=== PATIENT | male | born 1950 | race Caucasian/White ===

== ENCOUNTER → 2016-06-17 | Outpatient (CLI) | payer OTHER ==
--- NOTE | 2016-06-17 09:58 | DI ---
ABDOMINAL AORTIC ULTRASOUND, 06/17/2016 8:49 AM Clinical History: Screening for abdominal aortic aneurysm Previous Exam: None at this facility. Scans are performed in multiple projections through the length of the aorta and iliac arteries with t he high resolution linear array probe. Color Doppler ultrasound was also performed. The abdominal aorta has a normal caliber throughout with no measurement exceeding 22 mm. Both common iliac arteries are also normal. Reading: Normal ultrasound exam of the abdominal aorta.
== END ==
LOC: US 08:45
PROVIDERS: ATTEND Internal Medicine
DX: Z13.6 Encounter for screening for cardiovascular disorders (principal)
CPT/HCPCS: 76775

== ENCOUNTER 2018-12-09 13:33 | Inpatient (IN) ==
[2018-12-09] MEDS ORDERED: Sodium Chloride 0.9% 1,000 ML PRIMARY IV ONE (14:07)
[2018-12-09 14:54] LABS: BASOPHILS # (AUTO) 0.02 10*3/UL; BASOPHILS % (AUTO) 0.3 % (0-1); EOSINOPHILS # (AUTO) 0.25 10*3/UL; EOSINOPHILS % (AUTO) 3.9 % (0-8); Hematocrit [HCT] 33.9 % (42.0-52.0); Hemoglobin [HGB] 10.6 g/dL (14.0-18.0); LYMPHOCYTES # (AUTO) 1.66 10*3/uL; MEAN CORPUSCULAR HGB CONC 31.3 g/dL (33-37); MEAN CORPUSCULAR VOLUME 96.6 FL (80-90); MONOCYTES # (AUTO) 0.93 10*3/UL (0.3-0.8); MONOCYTES % (AUTO) 14.6 % (5-15); NEUTROPHILS # (AUTO) 3.48 10*3/UL; NEUTROPHILS % (AUTO) 54.6 % (50-80); RED BLOOD COUNT 3.51 10^6/uL (4.70-6.10)
[2018-12-09 14:58] LABS: PLATELET MORPHOLOGY COMMENT NORMAL MORPHOLOGY (NORM); RBC MORPHOLOGY COMMENT NORMAL MORPHOLOGY (NORM); WBC MORPHOLOGY COMMENT NORMAL MORPHOLOGY (NORM)
[2018-12-09 15:05] LABS: BUN/CREATININE RATIO 20.76 (6-20); SERUM ALBUMIN 3.9 g/dL (3.5-4.8)
--- NOTE | 2018-12-09 16:05 | DI ---
XR TIB/FIB 2VW,12/09/2018 2:08 PM: Clinical History: Cellulitis Previous Exam: 03/21/2015 contralateral knee. Findings: 4 views of the left tibia and fibula are obtained, and demonstrate anatomic alignment without fractur es. There are rina noted involving the tibial plateau. There is a bone screw noted arising from the lateral femur. Peripheral vascular calcifications are se en. There is diffuse edema of the soft tissues. There is enthesopathy at the insertion of the Marcus s tendon. A few phleboliths are seen. Impression: Postsurgical changes of the femur and tibia without fractures.
--- NOTE | 2018-12-09 16:26 | DI ---
US Veins, [facility] [employer],12/09/2018 3:30 PM: Clinical History: Flank pain and elevated d-dimer. Previous Exam: None at this facility. Findings: Multiple grayscale and color Doppler sonographic images are obtained through the deep veins of the le ft lower extremity, and demonstrate complete coaptation upon graded compression throughout. There is no echogenic thrombus. There is normal respiratory variation and augmentation. Impression: No evidence of deep venous thrombosis.
[2018-12-09] MEDS ORDERED: Ertapenem Inj 1 GM in Sodium Chloride 0.9% 100 ML IV ONE (16:39)
--- NOTE | 2018-12-09 17:22 | PDOC ---
Lower Extremity Problem HPI - General Chief Complaint: Lower Extremity Problem/Injury Stated Complaint: left lower leg diabetic ulcer Date Seen by Provider: 12/09/18 Time Seen by Provider: 13:55 Source: POSITIVE: Patient, Spouse Exam Limitations: POSITIVE: No limitations Nurse's Notes Reviewed & Considered: Yes - History of Present Illness Initial Comments: The patient is a 68-year-old male. Patient has a history of diabetes mellitus. He states he has a history of developing cellulitis and diabetic ulcers to his lower extremities. Patient states for the past 2 months he has had erythema warmth and tenderness over the lateral aspect of the left lower leg. He has been undergoing physical therapy for this problem and is being treated by his cardroom plastic card grader at the clinic. He states that in the past he has received treatment with rodney boots. He has been being treated in the physical therapy clinic. He states that for the past 2 weeks his condition has worsened and he was seen or was contacted by his cardroom plastic card grader this morning and was advised to come to the emergency room for further evaluation and treatment. Patient wears a knee brace to his left knee and states that he has in the past had surgery for an anterior cruciate ligament injury and is also had surgical treatment for a left meniscal injury. He has a history of coronary artery disease and has had a coronary artery stent. He is on metformin and also aspartate and glargine insulin Body Location Affected: REPORTS: Lower Extremity (L) Timing: REPORTS: Gradual, Getting Worse Duration: >1 week Severity: Moderate Recent Injury: REPORTS: No Context of Injury: REPORTS: Other (Recurring cellulitis and diabetic ulcers to lower extremities) Location at Time of Onset: REPORTS: Home Quality: REPORTS: "Pain" (Pain on palpation over area of cellulitis of left low er leg) Modifying Factors: REPORTS: Other (Exacerbated by direct palpation) Associated Symptoms: DENIES: Chest Pain, Shortness of Breath, Rapid Heart Rate, Fainting, Other Recent Care Received: REPORTS: Other (As above) Any Prior Injuries Related to Current Complaint?: No - Patient Home Medications Home Medications: Home Medications Metformin HCl 1,000 mg PO BID 07/12/10 Metoprolol Tartrate 25 mg PO BID 07/12/10 Ranitidine HCl 150 mg PO BID cap 03/21/15 acetaminophen 325 mg tablet 650 mg PO 3-4XD tab 03/09/17 buspirone 10 mg tablet 20 mg PO TID #180 tab 03/09/17 adhesive tape 3" X 10 yard See Dose Instructions .ROUTE .MEDSUPPLY #12 ea 07/03/17 calcium alginate 4" X 4" bandage See Dose Instructions .ROUTE .MEDSUPPLY #10 ea 07/03/17 isosorbide mononitrate ER 30 mg tablet,extended release 24 hr 30 mg PO BID tab 12/02/17 aspirin 81 mg chewable tablet 81 mg PO QDAY tab 07/19/18 cyanocobalamin (vit B-12) 1,000 mcg/mL oral drops 1,000 mcg PO QDAY drp 07/19/18 lisinopril 20 mg-hydrochlorothiazide 25 mg tablet 1 tab PO QDAY 07/19/18 zolpidem 10 mg tablet 10 mg PO QDAY tab 07/19/18 doxycycline hyclate 100 mg capsule 100 mg PO BID #180 cap 07/28/18 fluoxetine 20 mg capsule 60 mg PO QDAY #90 cap 08/23/18 valproic acid 250 mg capsule 250 mg PO QDAY #60 cap 08/23/18 finasteride 5 mg tablet 5 mg PO QDAY #90 tab 11/10/18 insulin aspart U- 100 100 unit/mL subcutaneous solution 70 unit SUBCUT QDAY vial 11/10/18 tamsulosin 0.4 mg capsule 0.4 mg PO QDAY #90 cap 11/10/18 magnesium 400 mg (as magnesium oxide) capsule 400 mg PO QDAY #90 cap 11/11/18 allopurinol 100 mg tablet 200 mg PO QDAY tab 11/24/18 clopidogrel 75 mg tablet 75 mg PO QDAY 11/24/18 foam bandage 4" X 4" See Dose Instructions .ROUTE .MEDSUPPLY #50 ea 11/24/18 furosemide 80 mg tablet 40 mg PO QDAY tab 11/24/18 gabapentin 400 mg capsule 1,200 mg PO TID cap 11/24/18 insulin glargine (U- 100) 100 unit/mL subcutaneous solution 70 unit SUBCUT BID ml 11/24/18 meloxicam 15 mg tablet 15 mg PO QDAY PRN tab 11/24/18 morphine ER 15 mg tablet,extended release 15 mg PO Q12H #90 tab 11/24/18 rosuvastatin 40 mg tablet 40 mg PO QDAY #90 tab 11/24/18 nitroglycerin 0.4 mg sublingual tablet 0.4 mg SL Q5-15M PRN #20 tab 12/06/18 - Patient Allergies Allergies/Adverse Reactions: Allergies Allergy/AdvReac Type Severity Reaction Status Date / Time coconut Allergy Unknown Hives Verified 12/09/18 13:53 Past Medical History - heen HEENT History: Denies History, Dentures/Partials Additional HEENT History: UPPER AND LOWER DENTURES Cardiovascular History: Hypertension, Previous NH, CAD, Hyperlipidemia Respiratory History: COPD, Shortness of Breath, Sleep Apnea, Home Oxygen Use, Snoring Additional Respiratory History: 4L NC AT ALL TIMES Gastrointestinal History: GERD Genitourinary History: Denies History Endocrine History: Type 2 Diabetes (insulin) Musculoskeletal History: Muscle Weakness, Carpal Tunnel, Osteoarthritis, Other (please comment) Prosthesis or Implant: No Additional Musculoskeletal History: RIGHT ELBOW NERVE IMPINGEMENT/SURGERY. R SHOULDER SURGERY. MUSCLE WEAKNESS BLE'S. WEARS BRACES. Neurological History: CVA, Migraines, Other (please comment) Additional Neurological History: GABAPENTIN FOR DIAB NEUROPATHY. MOSTLY IN HANDS AND FEET. HASN'T HAD MIGRAINE IN A LONG TIME, PT STATES. Blood Disorders: Denies History Psychiatric History: Depression, Anxiety Disorders, PTSD History of Sexually Transmitted Diseases: No Male Reproductive History: BPH Cancer History: Denies History In Past Year Been Physically Harmed or Verbally Threatened: No History of MDRO: No History of Other Communicable Diseases: No Tobacco Use: Former Smoker Alcohol Use: None In the Past 12 Months, Have Used or Abuse Any Substance: None Previous Surgical History: Yes Type / Date of Surgery: T&A/ COLONOSCOPY/ CORONARY ANGIOGRAM AND CORONARY STENT X 1/ KNEE SCOPE ACL LEFT/ RIGHT RCR/ LEFT ELBOW AND HUMERUS SX Anesthesia Reactions: No Malignant Hyperthermia: No Significant Family History: No pertinent family hx Past Medical History Reviewed: Reviewed - No Changes ROS - Limitations ROS Limitations: No Limitations Constitution: REPORTS: Denies Symptoms Cardiovascular: REPORTS: Denies Cardiac Symptoms Respiratory: REPORTS: Denies Resp Symptoms Neurological: REPORTS: Denies Neuro Symptoms Gastrointestinal: REPORTS: Denies GI Symptoms Endocrine: REPORTS: Denies Symptoms Musculoskeletal: REPORTS: Other (Warmth, erythema and tenderness over anteromedial aspect of left lower leg with a superficial ulcer; some weeping over this area.) Genitourinary: REPORTS: Denies Symptoms Eyes: REPORTS: Denies Symptoms ENT: REPORTS: Denies Symptoms Skin: REPORTS: Other (Erythema, warmth and tenderness over the medial aspect of the left lower leg with some weeping and a superficial ulcer) Lympathic: REPORTS: Denies Lympathic Symptoms Immunologic: POSITIVE: Denies Symptoms Psychiatric: POSITIVE: Denies Psych Symptoms Lower Ext Problem Exam - General Appearance General Appearance: POSITIVE: Alert, Cooperative, No Acute Distress. NEGATIVE: No Evidence of Trauma - Extremities Lower Extremity: POSITIVE: Tenderness, Swelling, Other (Warmth, tenderness and erythema over the anteromedial aspect of left lower extremity with some weeping and a shallow ulcer) Joint Exam: POSITIVE: Joints Normal, Normal ROM, Normal Gait, Normal Weight Bearing Vascular: POSITIVE: No Vascular Compromise, Full Pulses, Equal Pulses - Neuro / Psych Neuro/Psych: POSITIVE: Sensation Normal, Motor Normal, Oriented to Person, Or iented to Place, Oriented to Time, director of patient care Normal as Tested, Mood Appropriate, Affect Appropriate - Neck / Back / Pelvis Back / Neck: POSITIVE: Normal Inspection, Normal ROM - Skin Skin: POSITIVE: Warmth, Erythema, Other (Warmth, erythema and tenderness over the medial aspect of the left lower leg with associated weeping and a shallow ulcer; see diagram) - HEENT HEENT: POSITIVE: Head Inspection Nml, Eyes Inspection Nml, Ears Inspection Nml, Nose Inspection Nml, Oral/Dental Inspect. Nml, Pharynx Inspect. Nml, PERRL, EOMI - Respiratory / CVS Respiratory / CVS: POSITIVE: No Respiratory Distress, Breath Sounds Normal, Regular Rate/Rhythm, Heart Sounds Normal Peripheral Pulses: Radial (R): 2+, Radial (L): 2+, Dorsalis-pedis (R): 2+, Dorsalis-pedis (L): 2+ - Abdomen Abdomen: Soft: (All Quadrants), Normal Bowel Sounds: (All Quadrants), Denies Tenderness: (All Quadrants), No Splenomegaly: (All Quadrants), No Hepatomegaly: (All Quadrants), No Guarding: (All Quadrants), No Rebound: (All Quadrants), No Palpable Pulse: (All Quadrants), No Palpabale Mass: (All Quadrants), No Diste ntion: (All Quadrants), No Rigidity: (All Quadrants) Images - Lower Extremities Lower Extremities: 1 - Erythema, tenderness, warmth with some weeping of serous fluid and a shallow ulcer 2 - Shallow ulcer 3 - Erythema Lower Ext Problem Progress - Results Reviewed by me Xrays/CTs/US Reviewed by me: Yes Discussed with Radiologist: Yes Radiology Findings: X-ray left tib-fib shows no osteomyelitis. There is postsurgical changes from his previous knee surgery, apparently an anterior cruciate ligament repair. Venous duplex ultrasound of the left leg normal. Lab Results Reviewed by Me: Yes CBC and BMP: 12/09/18 14:30 12/09/18 14:30 Lab Results:: Laboratory Results 12/09/18 12/09/18 12/09/18 14:30 14:30 14:30 WBC 6.37 RBC 3.51 L Hgb 10.6 L Hct 33.9 L MCV 96.6 H MCH 30.2 MCHC 31.3 L RDW Std Deviation 48.8 RDW Coeff of Sadiq 14.6 H Plt Count 203 MPV 11.0 Immature Gran % (Auto) 0.5 Neut % (Auto) 54.6 Lymph % (Auto) 26.1 Grant % (Auto) 14.6 Eos % (Auto) 3.9 Baso % (Auto) 0.3 Immature Gran # (Auto) 0.03 Neut # (Auto) 3.48 Lymph # (Auto) 1.66 Grant # (Auto) 0.93 H Eos # (Auto) 0.25 Baso # (Auto) 0.02 WBC Morphology Comment Normal morphology Plt Morphology Comment Normal morphology RBC Morph Comment Normal morphology D-Dimer Sodium Potassium Chloride Carbon Dioxide Anion Gap BUN Creatinine Estimated GFR BUN/Creatinine Ratio Glucose Calculated Osmolality Lactic Acid 3.6 H Calcium Total Bilirubin AST ALT Alkaline Phosphatase C-Reactive Protein 0.6 Total Protein Albumin Globulin Albumin/Globulin Ratio 12/09/18 12/09/18 14:30 14:30 WBC RBC Hgb Hct MCV MCH MCHC RDW Std Deviation RDW Coeff of Sadiq Plt Count MPV Immature Gran % (Auto) Neut % (Auto) Lymph % (Auto) Grant % (Auto) Eos % (Auto) Baso % (Auto) Immature Gran # (Auto) Neut # (Auto) Lymph # (Auto) Grant # (Auto) Eos # (Auto) Baso # (Auto) WBC Morphology Comment Plt Morphology Comment RBC Morph Comment D-Dimer 739 H Sodium 143 Potassium 5.1 Chloride 102 Carbon Dioxide 30 Anion Gap 11 BUN 27 H Creatinine 1.3 Estimated GFR 55 BUN/Creatinine Ratio 20.76 H Glucose 125 H Calculated Osmolality 301.0 H Lactic Acid Calcium 9.0 Total Bilirubin 0.2 L AST 41 ALT 40 Alkaline Phosphatase 52 C-Reactive Protein Total Protein 6.7 Albumin 3.9 Globulin 2.8 Albumin/Globulin Ratio 1.30 - Patient's Progress Pain Medication Addressed: POSITIVE: Not Applicable Re-Examine Time: 16:35 Re-Examine Comment: Results of radiologic studies and laboratory studies discussed with patient and his . Patient's cellulitis has progressed as above. Options of treatment discussed; patient admitted for further evaluation and treatment. Blood cultures were drawn and the patient received 1 g of Invanz IV. Status: POSITIVE: Unchanged, Re-Examined - Consult Consult (If Yes, Name of Consulting MD & Time Called): Yes (Dr. Canseco, [facility], 2099) Consulting MD will see pt:: POSITIVE: [facility] [place] Admit Counseled: POSITIVE: Patient, Family (), RE: Lab Results, RE: Radiology Results, RE: DX, RE: Need for F/U Patient Care Time - Estimated PCT Patient Care Time (In Minutes): 45 Vital Signs - Recent Vital Signs Vital Signs: Vital Signs (Last 8 hours) Temp Pulse Pulse Resp BP BP Pulse Ox 12/09/18 16:56 96.6 F L 62 16 118/52 96 12/09/18 13:54 98 F 78 18 97/58 96 - VS Reviewed Vital Signs Reviewed: Yes Discharge Clinical Impression: Cellulitis, Diabetes mellitus Discharge Disposition: Admit to Inpatient Condition: Good Patient Problem(s) Reviewed: Yes Follow Up With: Chrissy Dutton [Primary Care Provider] - Date Decision to Admit to Inpatient: 12/09/18 Time Decision to Admit to Inpatient: 16:30
--- NOTE | 2018-12-09 17:29 | PDOC ---
HPI - History of Present Illness Date of Service: 12/09/18 Time of Service: 18:00 Chief Complaint: Pain and redness in the left lower leg progressively getting worse the last 2 weeks History of Present Illness: This is a 68 years old male with medical history significant for history of diabetes on insulin, history of coronary artery disease with previous stent, hypertension, hyperlipidemia, chronic pain syndrome, depression , BPH and histor y of previous ulcer and the was referred to the ER from Dr. Nato macias because of increasing redness and pain in the left lower leg. The patient said that he had an area of redness in that leg about 2 months ago seemed to resolve until a month ago when started again with area of redness in the middle of left lower leg and progressively got worse the last 2 weeks. The area of redness increased in size and leg swelling and pain got worse last night and because of that he contacted his physician who sent him to the ER. In the ER he was diagnosed with worsening cellulitis was given Invanz and was admitted. Apart from the swelling and redness in the leg the patient denied other symptoms like chest pain, shortness of breath, nausea, vomiting. Past Medical History Medical History: 1. History of diabetes on insulin. 2. History of a artery disease with previous stent 2003. Apparently he told that he needs CABG but he opted against it. 3. History of diabetic retinopathy. 4. History of chronic pain syndrome on morphine. 5. BPH. 6. History of hypercholesterolemia. 7. History of depression. 8. History of gout. 9. History of leg ulcers before. 10. Morbid obesity. 11. Chronic hypoxemia on oxygen 4 L a minute. 12. History of hypertension. 13. History of chronic arthritis. 14. History of GERD. 15. History of CHF with preserved ejection fraction Surgical History: 1. History of tonsillectomy. 2. History of appendectomy. 3. History of previous stent before Family History: Reviewed an Not Pertinent Past Social History: Used to smoke doesn't smoke anymore, doesn't drink, no drugs. He said he is limited in his movement because of previous injuries that he had to joint using a wheelchair mostly the last month or 2. Tobacco Use: Former Smoker In the Past 12 Months, Have Used or Abuse Any of the Following Substance: None Medication / Allergies Home Medications: Home Medications Medication Instructions Recorded Confirmed Metformin HCl 1,000 mg PO BID 07/12/10 12/09/18 Metoprolol Tartrate 25 mg PO BID 07/12/10 12/09/18 Ranitidine HCl 150 mg PO BID cap 03/21/15 12/09/18 acetaminophen 325 mg tablet 650 mg PO 3-4XD tab 03/09/17 12/09/18 buspirone 10 mg tablet 20 mg PO TID #180 tab 03/09/17 12/09/18 adhesive tape 3" X 10 yard See Dose Instructions .ROUTE 07/03/17 11/10/18 .MEDSUPPLY #12 ea calcium alginate 4" X 4" bandage See Dose Instructions .ROUTE 07/03/17 11/10/18 .MEDSUPPLY #10 ea isosorbide mononitrate ER 30 mg 30 mg PO BID tab 12/02/17 12/09/18 tablet,extended release 24 hr aspirin 81 mg chewable tablet 81 mg PO QDAY tab 07/19/18 12/09/18 cyanocobalamin (vit B-12) 1,000 1,000 mcg PO QDAY drp 07/19/18 12/09/18 mcg/mL oral drops lisinopril 20 1 tab PO QDAY 07/19/18 12/09/18 mg-hydrochlorothiazide 25 mg tablet zolpidem 10 mg tablet 10 mg PO QDAY tab 07/19/18 12/10/18 doxycycline hyclate 100 mg capsule 100 mg PO BID #180 cap 07/28/18 12/09/18 fluoxetine 20 mg capsule 60 mg PO QDAY #90 cap 08/23/18 12/09/18 valproic acid 250 mg capsule 250 mg PO QDAY #60 cap 08/23/18 12/09/18 finasteride 5 mg tablet 5 mg PO QDAY #90 tab 11/10/18 12/09/18 insulin aspart U- 100 100 unit/mL 70 unit SUBCUT QDAY vial 11/10/18 12/09/18 subcutaneous solution tamsulosin 0.4 mg capsule 0.4 mg PO QDAY #90 cap 11/10/18 12/09/18 magnesium 400 mg (as magnesium 400 mg PO QDAY #90 cap 11/11/18 12/09/18 oxide) capsule allopurinol 100 mg tablet 200 mg PO QDAY tab 11/24/18 12/09/18 clopidogrel 75 mg tablet 75 mg PO QDAY 11/24/18 12/09/18 foam bandage 4" X 4" See Dose Instructions .ROUTE 11/24/18 11/24/18 .MEDSUPPLY #50 ea furosemide 80 mg tablet 40 mg PO QDAY tab 11/24/18 12/09/18 gabapentin 400 mg capsule 1,200 mg PO TID cap 11/24/18 12/09/18 insulin glargine (U- 100) 100 70 unit SUBCUT BID ml 11/24/18 12/09/18 unit/mL subcutaneous solution meloxicam 15 mg tablet 15 mg PO QDAY PRN tab 11/24/18 12/09/18 morphine ER 15 mg tablet,extended 15 mg PO Q12H #90 tab 11/24/18 12/09/18 release rosuvastatin 40 mg tablet 40 mg PO QDAY #90 tab 11/24/18 12/09/18 nitroglycerin 0.4 mg sublingual 0.4 mg SL Q5-15M PRN #20 tab 12/06/18 12/09/18 tablet Allergies/Adverse Reactions: Allergies Allergy/AdvReac Type Severity Reaction Status Date / Time coconut Allergy Unknown Hives Verified 12/09/18 17:34 Review of Systems - Review of Systems All Systems: Reviewed & No Additional Complaints Except as Stated Exam - Vitals Vital Signs: Vital Signs Temperature 96.6 F Temperature Source Temporal Artery Scan Pulse Rate [Pulse Oximeter] 78 Pulse Rate 62 Respiratory Rate 16 Blood Pressure [Left Arm] 97/58 Blood Pressure 118/52 Pulse Ox 96 Oxygen Flow Rate 4 Oxygen Delivery Method Nasal Cannula Height 6 ft Weight 280 lb - General General Appearance: No Acute Distress, Morbidly Obese - Head Head Exam: Normal Inspection - Eye Eye Exam: POSITIVE: Normal Appearance - ENT ENT Exam: POSITIVE: Normal Exam - Neck Neck Exam: Normal Inspection - Respiratory Respiratory Exam: POSITIVE: Clear to Auscultation - Bilaterally - Cardiovascular Cardiovascular Exam: POSITIVE: RRR - GI/Abdominal GI/Abdominal Exam: POSITIVE: Normal Bowel Sounds, Non Tender, Non Distended, Soft, No Organomegaly - Rectal Rectal Exam: POSITIVE: Deferred - External Exam: POSITIVE: Deferred - Extremities Additional Extremities Exam Details: There is bilateral leg edema worse on the left compared to that. There is some ulceration left lower lip. In addition there is a area of redness around the ulceration some chronic meticulous. Some tenderness present - Back Back Exam: POSITIVE: Normal Inspection - Neurological Neurological Exam: POSITIVE: Alert, Oriented x 3, CN II-XII Intact, No Facial Droop, Speech Intact / Clear, Moves All Extremities Equally - Psychiatric Psychiatric Exam: POSITIVE: Normal Affect Results - Labs CBC and BMP: 12/09/18 14:30 12/09/18 14:30 - Imaging Status: Report Reviewed by Me (US leg No evidence of deep venous thrombosis. X ray legs Postsurgical changes of the femur and tibia without fractures.) Assessment and Plan - Patient Problems (1) Cellulitis Current Visit: Yes Status: Acute Comment: There is chronic changes present in the leg but he is reporting acute symptoms to suggest maybe superimposed infection. I think will treat with vancomycinl becuase of his previous history of MRSA. There is also a stasis ulceration changes so we will ask PT to evaluate him in am. Code(s): L03.90 - Cellulitis, unspecified (2) Chronic pain Current Visit: No Status: Chronic Comment: Same medication. He'll bring his on pain medication. Code(s): G89.29 - Other chronic pain Qualifiers: Chronic pain type: chronic pain syndrome Qualified Code(s): G89.4 - Chronic pain syndrome (3) Type 2 diabetes mellitus with diabetic polyneuropathy, with long-term current use of insulin Current Visit: No Status: Chronic Onset Date: 02/26/16 Comment: He is on 70 units of Lantus twice a day and continue with it. He is also onsliding scale will e the [facility] sliding scale until we get a copy of his scale. Code(s): E11.42 - Type 2 diabetes mellitus with diabetic polyneuropathy; Z79.4 - petroleum terminal plant operator (current) use of insulin (4) Essential hypertension Current Visit: No Status: Chronic Onset Date: 02/26/16 Comment: Same med Code(s): I10 - Essential (primary) hypertension (5) Mixed hyperlipidemia Current Visit: No Status: Chronic Onset Date: 02/26/16 Comment: Same med Code(s): E78.2 - Mixed hyperlipidemia (6) Depression with anxiety Current Visit: No Status: Chronic Onset Date: 02/26/16 Comment: same Medication Code(s): F41.8 - Other specified anxiety disorders
[2018-12-09] MEDS ORDERED: DOCUSATE 100 MG CAPSULE PO PRN (18:20)
[2018-12-09] MEDS ORDERED: CALCIUM CARBONATE 500 MG (TUMS) CHEWABLE TABLET PO PRN (18:20)
[2018-12-09] MEDS ORDERED: LIDOCAINE W/ SODIUM BICARB 0.5 ML SYR SUBD PRN (18:20)
[2018-12-09] MEDS ORDERED: ACETAMINOPHEN 325 MG TABLET PO PRN (18:20)
[2018-12-09] MEDS ORDERED: ONDANSETRON 4 MG/2 ML VIAL IVP PRN (18:20)
[2018-12-09] MEDS ORDERED: Vancomycin-PHA to Dose IV PRN (18:34)
[2018-12-09] MEDS: SODIUM CHLORIDE 0.9% IV SCH (19:20)
[2018-12-09] MEDS: VANCOMYCIN IV SCH (19:20)
[2018-12-09] MEDS: metFORMIN 500 MG TABLET PO SCH (20:09)
[2018-12-09] MEDS: Insulin Glargine SoloStar Inj 100 UNIT/ML INSULN.PEN SUBCUT SCH (20:10)
[2018-12-09] MEDS: Metoprolol TARTRATE Tab 25 MG TAB PO SCH (20:10)
[2018-12-09] MEDS: ISOSORBIDE MONONITRATE 30 MG SR 24H TABLET PO SCH (20:10)
[2018-12-09] MEDS: FAMOTIDINE 20 MG TABLET PO SCH (20:10)
[2018-12-09] MEDS: MORPHINE SULFATE 15 MG PO SCH (20:12)
[2018-12-09] MEDS ORDERED: ZOLPIDEM 10 MG TABLET PO PRN (20:46)
[2018-12-09] MEDS ORDERED: Rosuvastatin Tab 20 MG TAB PO SCH (21:00)
[2018-12-09] MEDS ORDERED: BUSPIRONE HCL 10 MG PO SCH (21:00)
[2018-12-09] MEDS ORDERED: RANITIDINE HCL 150 MG PO SCH (21:00)
[2018-12-09] MEDS ORDERED: VALPROIC ACID 250 MG PO SCH (21:00)
[2018-12-09] MEDS ORDERED: INSULIN GLARGINE 70 UNIT SUBCUT SCH (21:00)
[2018-12-09] MEDS: BUSPIRONE HCL 10 MG PO SCH (21:21)
[2018-12-10 05:09] LABS: BASOPHILS # (AUTO) 0.02 10*3/UL; BASOPHILS % (AUTO) 0.3 % (0-1); EOSINOPHILS # (AUTO) 0.24 10*3/UL; EOSINOPHILS % (AUTO) 4.2 % (0-8); Hematocrit [HCT] 32.4 % (42.0-52.0); Hemoglobin [HGB] 9.9 g/dL (14.0-18.0); LYMPHOCYTES # (AUTO) 1.71 10*3/uL; MEAN CORPUSCULAR HGB CONC 30.6 g/dL (33-37); MEAN CORPUSCULAR VOLUME 96.7 FL (80-90); MEAN PLATELET VOLUME 10.9 FL (7.4-12.2); MONOCYTES # (AUTO) 0.98 10*3/UL (0.3-0.8); NEUTROPHILS % (AUTO) 48.6 % (50-80); RED BLOOD COUNT 3.35 10^6/uL (4.70-6.10)
[2018-12-10 05:23] LABS: BLOOD UREA NITROGEN 26 mg/dL (7-22); BUN/CREATININE RATIO 23.63 (6-20)
[2018-12-10 05:26] LABS: PLATELET MORPHOLOGY COMMENT NORMAL MORPHOLOGY (NORM); RBC MORPHOLOGY COMMENT NORMAL MORPHOLOGY (NORM); WBC MORPHOLOGY COMMENT NORMAL MORPHOLOGY (NORM)
[2018-12-10] MEDS: SODIUM CHLORIDE 0.9% IV SCH (06:46)
[2018-12-10] MEDS: VANCOMYCIN IV SCH (06:46)
[2018-12-10 06:57] VITALS: RESP 18
[2018-12-10] MEDS ORDERED: HYDROCHLOROTHIAZIDE 25 MG TABLET PO SCH (07:00)
[2018-12-10] MEDS ORDERED: FUROSEMIDE 40 MG TABLET PO SCH (07:00)
[2018-12-10] MEDS: Insulin Lispro Flexpen 300 UNIT/3 ML INSULN.PEN SUBCUT SCH ×2 (07:50→11:12)
[2018-12-10] MEDS: BUSPIRONE HCL 10 MG PO SCH (08:48)
[2018-12-10] MEDS: ISOSORBIDE MONONITRATE 30 MG SR 24H TABLET PO SCH (08:50)
[2018-12-10] MEDS: Metoprolol TARTRATE Tab 25 MG TAB PO SCH (08:50)
[2018-12-10] MEDS: FAMOTIDINE 20 MG TABLET PO SCH (08:50)
[2018-12-10] MEDS: metFORMIN 500 MG TABLET PO SCH (08:50)
[2018-12-10] MEDS: Insulin Glargine SoloStar Inj 100 UNIT/ML INSULN.PEN SUBCUT SCH (08:51)
[2018-12-10] MEDS: MORPHINE SULFATE 15 MG PO SCH (08:52)
[2018-12-10] MEDS ORDERED: FLUoxetine 20 MG CAPSULE PO SCH (09:00)
[2018-12-10] MEDS ORDERED: VALPROIC ACID 250 MG PO SCH (09:00)
[2018-12-10] MEDS ORDERED: HYDROCHLOROTHIAZIDE PO SCH (09:00)
[2018-12-10] MEDS ORDERED: FINASTERIDE 5 MG TABLET PO SCH (09:00)
[2018-12-10] MEDS ORDERED: CLOPIDOGREL 75 MG TABLET PO SCH (09:00)
[2018-12-10] MEDS ORDERED: LISINOPRIL 20 MG TABLET PO SCH (09:00)
[2018-12-10] MEDS ORDERED: ASPIRIN 81 MG (BABY) CHEWABLE TABLET PO SCH (09:00)
[2018-12-10] MEDS ORDERED: LISINOPRIL PO SCH (09:00)
[2018-12-10] MEDS ORDERED: ALLOPURINOL 100 MG TABLET PO SCH (09:00)
[2018-12-10] MEDS ORDERED: TAMSULOSIN 0.4 MG CAPSULE PO SCH (09:00)
[2018-12-10 12:36] VITALS: BP 156/58; TEMP 98.6; O2SAT 98
[2018-12-10] MEDS ORDERED: ceFAZolin Inj 2 GM in Sodium Chloride 0.9% 100 ML IV SCH (13:30)
--- NOTE | 2018-12-10 15:42 | DCSUMMARY ---
Hospitalization Summary Admit Date: 12/09/2018 Discharge Date: 12/10/18 Primary Diagnosis:: left lower extremity cellulitis, venous stasis ulcer Hospital Course: This very pleasant 68-year-old male who suffers from diabetes mellitus type II, peripheral neuropathy, coronary artery disease, probable peripheral vascular disease, recurrent venous stasis ulcers, and PTSD, who was admitted on 12/09/2018 with what appeared to be a left lower extremity venous stasis ulcer a nd cellulitis. He was given ertapenem, and the vancomycin, but he was not toxic and did not appear to have MRSA infection based on illness state clinically, but he did have some crusting on his wound. I think this is likely a staph aureus infection, probably MSSA, and would benefit from Ancef 2 g IV every 8 hours. Given that the patient is [facility], this type several hours to arrange, to try and make sure that his antibiotic therapy would be covered. He failed doxycycline as an outpatient. There was some concern as to whether or not this could just be a venous stasis ulcer itself, but I felt that it was probably infected as the leg felt warmer on my exam and was uniformly red around. Consistent with cellulitis. Patient's other medical problems were controlled during the hospital stay except for his post traumatic stress disorder. During the day, the patient became very obstinate, defensive, and cursed, and told me that I needed to get out of his "fucking business". He stated to me that he was going to leave regardless of what we were going to do. Although we arranged IV antibiotics 3 times a day, he refuses to come in 3 times a day so we had to change her antibiotic to daptomyc in, 6 mg/kg IV every 24 hours. I spoke to pharmacy about this. We were able to arrange an infectious disease follow-up with [facility] on 12/15/2018. We will infuse via peripheral IV. I spoke with his [facility] provider, Dr. Lopez, and I also suggested that the patient see a psychiatrist for his postemetic stress disorder to consider any further medical or pharmaceutical management for this issue. He had no complaints of chest pain, shortness breath, nausea or vomiting. Assessment and Plan: 1. As per discharge assessments noted 2. Disposition: Patient is discharged home 3. Condition on discharge, stable and improved. 4. Diet: regular diet 5. Activities: resume normal activities 6. Follow-Up: 1. Visit with [facility] provider, Dr. Lopez next week 2. Visit with [facility] on 12/15/2018 7. Medications at the Time of Discharge: Home Medications Medication Instructions Recorded Confirmed Metformin HCl 1,000 mg PO BID 07/12/10 12/09/18 Metoprolol Tartrate 25 mg PO BID 07/12/10 12/09/18 Ranitidine HCl 150 mg PO BID cap 03/21/15 12/09/18 acetaminophen 325 mg tablet 650 mg PO 3-4XD tab 03/09/17 12/09/18 buspirone 10 mg tablet 20 mg PO TID #180 tab 03/09/17 12/09/18 adhesive tape 3" X 10 yard See Dose Instructions .ROUTE 07/03/17 11/10/18 .MEDSUPPLY #12 ea calcium alginate 4" X 4" bandage See Dose Instructions .ROUTE 07/03/17 11/10/18 .MEDSUPPLY #10 ea isosorbide mononitrate ER 30 mg 30 mg PO BID tab 12/02/17 12/09/18 tablet,extended release 24 hr aspirin 81 mg chewable tablet 81 mg PO QDAY tab 07/19/18 12/09/18 cyanocobalamin (vit B-12) 1,000 1,000 mcg PO QDAY drp 07/19/18 12/09/18 mcg/mL oral drops lisinopril 20 1 tab PO QDAY 07/19/18 12/09/18 mg-hydrochlorothiazide 25 mg tablet zolpidem 10 mg tablet 10 mg PO QDAY tab 07/19/18 12/10/18 fluoxetine 20 mg capsule 60 mg PO QDAY #90 cap 08/23/18 12/09/18 valproic acid 250 mg capsule 250 mg PO QDAY #60 cap 08/23/18 12/09/18 finasteride 5 mg tablet 5 mg PO QDAY #90 tab 11/10/18 12/09/18 insulin aspart U- 100 100 unit/mL 70 unit SUBCUT QDAY vial 11/10/18 12/09/18 subcutaneous solution tamsulosin 0.4 mg capsule 0.4 mg PO QDAY #90 cap 11/10/18 12/09/18 magnesium 400 mg (as magnesium 400 mg PO QDAY #90 cap 11/11/18 12/09/18 oxide) capsule allopurinol 100 mg tablet 200 mg PO QDAY tab 11/24/18 12/09/18 clopidogrel 75 mg tablet 75 mg PO QDAY 11/24/18 12/09/18 furosemide 80 mg tablet 40 mg PO QDAY tab 11/24/18 12/09/18 gabapentin 400 mg capsule 1,200 mg PO TID cap 11/24/18 12/09/18 insulin glargine (U- 100) 100 70 unit SUBCUT BID ml 11/24/18 12/09/18 unit/mL subcutaneous solution meloxicam 15 mg tablet 15 mg PO QDAY PRN tab 11/24/18 12/09/18 morphine ER 15 mg tablet,extended 15 mg PO Q12H #90 tab 11/24/18 12/09/18 release rosuvastatin 40 mg tablet 40 mg PO QDAY #90 tab 11/24/18 12/09/18 nitroglycerin 0.4 mg sublingual 0.4 mg SL Q5-15M PRN #20 tab 12/06/18 12/09/18 tablet Daptomycin 6 mg per kilograms IV 7 days 12/10/18 8. Time, care, counseling and coordination of care for this discharge is greater than 30 minutes. Exam - Vitals Vital Signs: Vital Signs Temperature 98.6 F Temperature Source Oral Pulse Rate [Apical] 80 Pulse Rate [Pulse Oximeter] 64 Pulse Rate 62 Respiratory Rate 18 Blood Pressure [Left Arm] 156/58 Blood Pressure 118/52 Pulse Ox 98 Oxygen Flow Rate 3 Oxygen Delivery Method Nasal Cannula Height 6 ft Weight 282 lb 6.4 oz - General General Appearance: No Acute Distress Additional General Exam Details: Angry and belligerent at discharge - Eye Eye Exam: POSITIVE: No Scleral Icterus - ENT ENT Exam: POSITIVE: Mucous Membranes Moist - Neck Neck Exam: JVP is not Raised - Respiratory Respiratory Exam: POSITIVE: Clear to Auscultation - Bilaterally, Breathing Non Labored - Cardiovascular Cardiovascular Exam: POSITIVE: RRR, No Murmur, No Clicks, No Gallops, No Rubs, No JVD - GI/Abdominal GI/Abdominal Exam: POSITIVE: Normal Bowel Sounds, Non Tender, Non Distended, Soft - Extremities Extremities Exam: POSITIVE: No Clubbing Present, No Cyanosis Present, +1 Edema Additional Extremities Exam Details: Redness and swelling with venous ulceration on the left medial calf, distal, consistent with cellulitis, with yellow crusting consistent with Staphylococcus aureus - Neurological Neurological Exam: POSITIVE: Alert, Oriented x 3, No Facial Droop, Speech Intact / Clear, Moves All Extremities Equally - Psychiatric Psychiatric Exam: POSITIVE: Anxious, Agitated Data Peritnent Studies: 12/09/18 12/09/18 12/09/18 14:30 14:30 14:30 WBC Hgb Hct Plt Count D-Dimer 739 H Sodium Potassium Chloride Carbon Dioxide Anion Gap BUN Creatinine Estimated GFR BUN/Creatinine Ratio Glucose Calculated Osmolality Lactic Acid 3.6 H Calcium Total Bilirubin AST ALT Alkaline Phosphatase C-Reactive Protein 0.6 Total Protein Albumin Globulin Albumin/Globulin Ratio 12/09/18 12/10/18 12/10/18 14:30 04:16 04:16 WBC 5.77 Hgb 9.9 L Hct 32.4 L Plt Count 181 D-Dimer Sodium 141 Potassium 4.7 Chloride 104 Carbon Dioxide 28 Anion Gap 9 BUN 26 H Creatinine 1.1 Estimated GFR > 60 BUN/Creatinine Ratio 23.63 H Glucose 127 H Calculated Osmolality 298.0 H Lactic Acid Calcium 8.9 Total Bilirubin 0.2 L AST 41 ALT 40 Alkaline Phosphatase 52 C-Reactive Protein Total Protein 6.7 Albumin 3.9 Globulin 2.8 Albumin/Globulin Ratio 1.30 blood cultures negative at 24 hours. Procedures: [address] Medicine[address] [facility] [place] [address] PH: DD: [phone] FAX: [phone] ~DIAGNOSTIC IMAGING REPORT~ ------- Patient: Bernabe Torres : 1950 Sex: M Age: 68 Exam Name: XR TIB/FIB 2VW Exam Date: 12/09/18 Report # : [id number] CPT Code: 54148 EMR/MR #: [id number] Ordering: JAVON ALBA Admiting: Primary: Chrissy Dutton MD. Attending: Signed XR TIB/FIB 2VW,12/09/2018 2:08 PM: Clinical History: Cellulitis Previous Exam: 03/21/2015 contralateral knee. Findings: 4 views of the left tibia and fibula are obtained, and demonstrate anatomic alignment without fractures. There are rina noted involving the tibial plateau. There is a bone screw noted arising from the lateral femur. Peripheral vascular calcifications are seen. There is diffuse edema of the soft tissues. There is enthesopathy at the insertion of the Achilles tendon. A few phleboliths are seen. Impression: Postsurgical changes of the femur and tibia without fractures. Dictated By: 12/09/18 1559 SAVANA YEAGER MD. Signed By: 12/09/18 1605 SAVANA YEAGER MD. [address] [facility] [facility] [place] [address] PH: DD: [phone] FAX: [phone] ~DIAGNOSTIC IMAGING REPORT~ Patient: Bernabe Torres : 1950 Sex: M Age: 68 Exam Name: US Veins, UE/LE [employer] Exam Date: 12/09/18 Report # : [id number] CPT Code: 38251 EMR/MR #: [id number] Ordering: JAVON ALBA Admiting: Primary: Chrissy Dutton MD. Attending: Signed US Veins, UE/LE [employer],12/09/2018 3:30 PM: Clinical History: Flank pain and elevated d-dimer. Previous Exam: None at this facility. Findings: Multiple grayscale and color Doppler sonographic images are obtained through the deep veins of the left lower extremity, and demonstrate complete coaptation upon graded compression throughout. There is no echogenic thrombus. There is normal respiratory variation and augmentation. Impression: No evidence of deep venous thrombosis. Dictated By: 12/09/18 1620 SAVANA YEAGER MD. Signed By: 12/09/18 1626 SAVANA EYAGER MD. Patient Problems - Patient Problem List (1) Cellulitis Current Visit: Yes Status: Acute Code(s): L03.90 - Cellulitis, unspecified Qualifiers: Site of cellulitis: extremity Site of cellulitis of extremity: lower extremity Laterality: left Qualified Code(s): L03.116 - Cellulitis of left lower limb Category: Medical (2) Diabetes mellitus Current Visit: Yes Status: Acute Code(s): E11.9 - Type 2 diabetes mellitus without complications Qualifiers: Diabetes mellitus type: type 2 Diabetes mellitus usp insulin use: with long term care pharmacist use Diabetes mellitus complication status: with neurologic complications Diabetes mellitus complication detail: with polyneuropathy Qualified Code(s): E11.42 - Type 2 diabetes mellitus with diabetic polyneuropathy; Z79.4 - shelter (current) use of insulin Category: Medical (3) Chronic pain Current Visit: Yes Status: Chronic Comment: able to perform limited ADLs with use of long-acting opiates, otherwise unable to do any ADLs Code(s): G89.29 - Other chronic pain Qualifiers: Chronic pain type: chronic pain syndrome Qualified Code(s): G89.4 - Chronic pain syndrome Category: Medical (4) MRSA (methicillin resistant Staphylococcus aureus) carrier Current Visit: Yes Status: Chronic Code(s): Z22.322 - Carrier or suspected carrier of Methicillin resistant Staphylococcus aureus Category: Medical (5) Type 2 diabetes mellitus with diabetic polyneuropathy, with long-term current use of insulin Current Visit: Yes Status: Chronic Onset Date: 02/26/16 Code(s): E11.42 - Type 2 diabetes mellitus with diabetic polyneuropathy; Z79.4 - shelter (current) use of insulin Category: Medical (6) PTSD (post-traumatic stress disorder) Current Visit: Yes Status: Chronic Onset Date: 02/26/16 Code(s): F43.10 - Post-traumatic stress disorder, unspecified Category: Medical (7) Gastroesophageal reflux disease Current Visit: No Status: Chronic Onset Date: 09/29/16 Code(s): K21.9 - Gastro-esophageal reflux disease without esophagitis Qualifiers: Esophagitis presence: esophagitis presence not specified Qualified Code(s): K21.9 - Gastro-esophageal reflux disease without esophagitis Category: Medical (8) Essential hypertension Current Visit: Yes Status: Chronic Onset Date: 02/26/16 Code(s): I10 - Essential (primary) hypertension Category: Medical (9) Depression with anxiety Current Visit: Yes Status: Chronic Onset Date: 02/26/16 Code(s): F41.8 - Other specified anxiety disorders Category: Medical
--- NOTE | 2018-12-13 10:36 | PTI REPORT ---
Thank you for the referral of Bernabe Torres. He was seen on 12/10/18 for an inpatient evaluation secondary to cellulitis of the left lower extremity. SUBJECTIVE: The patient is a 68-year-old male who was admitted secondary to cellulitis of the left lower extremity. He has been in our care before with similar issues. We have treated the patient for this chronic venous insufficiency multiple times before. He does receive his benefits through the [facility] and there is a lengthy preauthorization procedure involved. He is pre-authorized to start some actual wound care starting Thursday, but he was advised to come to Urgent Care or the Emergency Room by our office after interviewing him yesterday. We have been trying to get him services through formal channels and felt as though his condition had eroded to the point where he needed urgent care. He will receive antibiotics. PAST MEDICAL HISTORY: Past medical history can be found in the patient's medical record. OBJECTIVE FINDINGS: The patient's left lower extremity looks to have a 6 inch x 6 inch area with cellulitis with minimal to moderate drainage that's mostly superficial in nature. There are a couple of areas in that area of cellulitis that could be full sickness. ASSESSMENT: The patient is not very happy about being hospitalized and wants to go home as soon as possible. Physical Therapy Goals: To be met by discharge from inpatient: Patient will promote sterile wound healing. TREATMENT PLAN: Patient will be seen every other day for wound care until discharge. INITIAL TREATMENT: Treatment today consisted of the initial evaluation followed by application of [facility]. ASHLEY
== END 2018-12-10 13:45 | disposition home or self-care (01) | DRG 603 ==
LOC: ER 13:33 → MED/SURG 17:16
PROVIDERS: ADMIT Internal Medicine; ATTEND Internal Medicine